=== PATIENT | female | born 1980 | race Caucasian/White ===

== ENCOUNTER 2018-12-16 06:15 | Inpatient (IN) | payer BC ==
[~2018-12-16] VITALS: Ht 165.1 cm; Wt 112.1 kg
[~2018-12-16 06:15] MED LIST: ALBUTEROL SULFAT3 M3 IH; ALBUTEROL2.5 MG/3 M IH; BUDESONIDE0.5 MG/2 M IH; CODEINE-GUAIFE120 ML PO; IBU800 M2 PO; IPRATROPIUM BROM3 M1 IH; MACROBID 100 M100 MG PO; PANTOPRAZOLE SO40 MG PO; PREDNISONE20 MG PO; PROAIR HFA0.09 MG/AC IH; PROZAC20 M1 PO; RANITIDINE HCL150 M1 PO; TESSALON PERLE100 M1 PO; ZITHROMAX Z PA250 MG PO
[2018-12-16] MEDS ORDERED: SYMBICORT1 AE3 IH (06:23)
[2018-12-16] MEDS ORDERED: XANAX0.5 M1 PO (06:24)
[2018-12-16 07:02] LABS: EOS # 0.3 (0.04-0.40); EOS % 2.3 % (1.0-5.0); HEMATOCRIT 46.2 % (37.0-47.0); HEMOGLOBIN 15.8 g/dL (12.5-16.0); LYMPH# 1.8 (1.50-4.00); MEAN CELL VOLUME 94 fl (78-100); MEAN CORPUSCULAR HEMOGLOBIN 32 pg (27-31); MEAN CORPUSCULAR HGB CONC 34 g/dL (33-37); MEAN PLATELET VOLUME 10.1 fl (7.4-10.4); MONO # 1.3 (0.20-0.80); PLATELET COUNT 400 K/mm3 (130-400); RED BLOOD COUNT 4.93 M/mm3 (4.10-5.30); RED CELL DISTRIBUTION WIDTH 13.6 % (11.5-14.5); WHITE BLOOD COUNT 14.6 K/mm3 (4.8-10.8)
[2018-12-16 07:03] LABS: NEU # 11.1 (1.40-6.50)
[2018-12-16 07:24] LABS: ALBUMIN 4.5 g/dL (3.5-5.0); CALCIUM 9.5 mg/dL (8.4-10.2); POTASSIUM 4.9 mmol/L (3.6-5.0); TOTAL BILIRUBIN 0.6 mg/dL (0.2-1.3); TOTAL PROTEIN 7.6 g/dL (6.3-8.2)
[2018-12-16 10:18] VITALS: BP 127/84
[2018-12-16 11:05] VITALS: BP 127/85
[2018-12-16 15:06] VITALS: BP 122/72
[2018-12-16 18:43] VITALS: BP 132/70
[2018-12-16 23:53] VITALS: BP 130/75
[2018-12-17 03:47] VITALS: BP 137/81
[2018-12-17 06:15] VITALS: BP 146/84
[2018-12-17 08:20] LABS: HEMATOCRIT 41.8 % (37.0-47.0); HEMOGLOBIN 14.3 g/dL (12.5-16.0); MEAN CELL VOLUME 95 fl (78-100); MEAN CORPUSCULAR HEMOGLOBIN 33 pg (27-31); MEAN CORPUSCULAR HGB CONC 34 g/dL (33-37); MEAN PLATELET VOLUME 9.4 fl (7.4-10.4); PLATELET COUNT 383 K/mm3 (130-400); RED BLOOD COUNT 4.39 M/mm3 (4.10-5.30)
[2018-12-17 08:23] LABS: WHITE BLOOD COUNT 21.4 K/mm3 (4.8-10.8)
[2018-12-17 08:32] LABS: BAND 1 % (0-10); LYMPHOCYTE 3 % (20-51); MONOCYTE 1 % (3-10); NEUTROPHILS 95 % (42-75)
[2018-12-17 08:33] LABS: CALCIUM 9.2 mg/dL (8.4-10.2)
[2018-12-17 11:00] VITALS: BP 126/78
[2018-12-17 14:34] VITALS: BP 131/73
[2018-12-17 18:28] VITALS: BP 138/83
[2018-12-17 23:09] VITALS: BP 130/80
[2018-12-18 02:53] VITALS: BP 119/76
[2018-12-18 06:23] VITALS: BP 127/76
[2018-12-18 10:38] LABS: HEMATOCRIT 42.1 % (37.0-47.0); HEMOGLOBIN 14.1 g/dL (12.5-16.0); MEAN CELL VOLUME 97 fl (78-100); MEAN CORPUSCULAR HEMOGLOBIN 32 pg (27-31); MEAN CORPUSCULAR HGB CONC 34 g/dL (33-37); MEAN PLATELET VOLUME 9.3 fl (7.4-10.4); PLATELET COUNT 419 K/mm3 (130-400); RED BLOOD COUNT 4.36 M/mm3 (4.10-5.30); RED CELL DISTRIBUTION WIDTH 13.2 % (11.5-14.5); WHITE BLOOD COUNT 19.3 K/mm3 (4.8-10.8)
[2018-12-18 10:50] LABS: ALBUMIN 4.2 g/dL (3.5-5.0); CALCIUM 9.1 mg/dL (8.4-10.2); POTASSIUM 3.9 mmol/L (3.6-5.0); TOTAL BILIRUBIN 0.4 mg/dL (0.2-1.3); TOTAL PROTEIN 7.2 g/dL (6.3-8.2)
[2018-12-18 11:01] LABS: BAND 1 % (0-10); LYMPHOCYTE 3 % (20-51); MONOCYTE 3 % (3-10); NEUTROPHILS 93 % (42-75)
[2018-12-18 11:21] VITALS: BP 129/80
[2018-12-18 14:28] VITALS: BP 146/79
[2018-12-18 14:44] VITALS: BP 146/79
== END 2018-12-18 16:13 | disposition short-term general hospital (02) | DRG 203 ==
LOC: ED 06:15 → MED/SURG 08:37
PROVIDERS: Nurse Practitioner; Physician Assistant; ADMIT Nurse Practitioner Primary Care
DX: J45.901 Unspecified asthma with (acute) exacerbation (principal); R06.03 Acute respiratory distress; F41.9 Anxiety disorder, unspecified; K21.9 Gastro-esophageal reflux disease without esophagitis; F17.210 Nicotine dependence, cigarettes, uncomplicated
CPT/HCPCS: J2060; J2930; J3475; J7030; Q9967

== ENCOUNTER 2019-07-31 23:13 | Emergency (ER) | payer SELFPAY ==
[~2019-07-31] VITALS: Ht 167.6 cm; Wt 113.6 kg
[~2019-07-31 23:13] MED LIST changes: +SYMBICORT1 AE3 IH; +XANAX0.5 M1 PO
[2019-08-01 00:36] LABS: EOS # 0.4 (0.04-0.40); EOS % 3.4 % (1.0-5.0); HEMATOCRIT 40.8 % (37.0-47.0); HEMOGLOBIN 14.2 g/dL (12.5-16.0); LYMPH# 1.9 (1.50-4.00); MEAN CELL VOLUME 93 fl (78-100); MEAN CORPUSCULAR HEMOGLOBIN 32 pg (27-31); MEAN CORPUSCULAR HGB CONC 35 g/dL (33-37); MEAN PLATELET VOLUME 9.6 fl (7.4-10.4); MONO # 0.8 (0.20-0.80); NEU # 7.2 (1.40-6.50); PLATELET COUNT 318 K/mm3 (130-400); RED BLOOD COUNT 4.38 M/mm3 (4.10-5.30); WHITE BLOOD COUNT 10.2 K/mm3 (4.8-10.8)
[2019-08-01] MEDS ORDERED: PREDNISONE20 M1 PO (01:10)
[2019-08-01] MEDS ORDERED: ALBUTEROL2.5 MG/3 M IH (01:10)
[2019-08-01 01:25] VITALS: BP 133/87
== END 2019-08-01 01:25 | disposition home or self-care (01) ==
LOC: ED 23:13
PROVIDERS: Family Medicine
DX: J45.909 Unspecified asthma, uncomplicated (principal); K21.9 Gastro-esophageal reflux disease without esophagitis; F41.0 Panic disorder [episodic paroxysmal anxiety]; Z79.51 Long term (current) use of inhaled steroids
CPT/HCPCS: J7512

== ENCOUNTER 2019-08-27 00:09 | Emergency (ER) | payer SELFPAY ==
[~2019-08-27] VITALS: Ht 167.6 cm; Wt 111.4 kg
[~2019-08-27 00:09] MED LIST changes: +PREDNISONE20 M1 PO
[2019-08-27 00:49] LABS: EOS # 0.4 (0.04-0.40); EOS % 3.6 % (1.0-5.0); HEMATOCRIT 41.8 % (37.0-47.0); HEMOGLOBIN 14.4 g/dL (12.5-16.0); LYMPH# 1.9 (1.50-4.00); MEAN CELL VOLUME 94 fl (78-100); MEAN CORPUSCULAR HEMOGLOBIN 32 pg (27-31); MEAN CORPUSCULAR HGB CONC 34 g/dL (33-37); MEAN PLATELET VOLUME 9.7 fl (7.4-10.4); MONO # 0.8 (0.20-0.80); NEU # 7.6 (1.40-6.50); PLATELET COUNT 371 K/mm3 (130-400); RED BLOOD COUNT 4.46 M/mm3 (4.10-5.30); RED CELL DISTRIBUTION WIDTH 13.4 % (11.5-14.5); WHITE BLOOD COUNT 10.7 K/mm3 (4.8-10.8)
[2019-08-27 01:14] LABS: POTASSIUM 3.9 mmol/L (3.5-5.1)
[2019-08-27 01:16] LABS: TOTAL PROTEIN 7.1 g/dL (6.4-8.3)
[2019-08-27 01:18] LABS: TOTAL BILIRUBIN 0.4 mg/dL (0.2-1.2)
[2019-08-27] MEDS ORDERED: PREDNISONE20 MG PO (01:55)
[2019-08-27 02:10] VITALS: BP 129/60
== END 2019-08-27 02:10 | disposition home or self-care (01) ==
LOC: ED 00:09
PROVIDERS: Physician Assistant
DX: J45.901 Unspecified asthma with (acute) exacerbation (principal); K21.9 Gastro-esophageal reflux disease without esophagitis; F41.9 Anxiety disorder, unspecified; F17.210 Nicotine dependence, cigarettes, uncomplicated; Z79.51 Long term (current) use of inhaled steroids
CPT/HCPCS: J2060; J2930

== ENCOUNTER 2019-09-24 18:04 | Emergency (ER) | payer SELFPAY ==
[~2019-09-24] VITALS: Ht 167.6 cm; Wt 113.6 kg
[2019-09-24 19:17] LABS: EOS # 0.3 (0.04-0.40); EOS % 3.3 % (1.0-5.0); HEMATOCRIT 41.3 % (37.0-47.0); HEMOGLOBIN 14.2 g/dL (12.5-16.0); LYMPH# 1.8 (1.50-4.00); MEAN CELL VOLUME 94 fl (78-100); MEAN CORPUSCULAR HEMOGLOBIN 32 pg (27-31); MEAN CORPUSCULAR HGB CONC 34 g/dL (33-37); MEAN PLATELET VOLUME 9.3 fl (7.4-10.4); MONO # 0.7 (0.20-0.80); PLATELET COUNT 346 K/mm3 (130-400); WHITE BLOOD COUNT 9.8 K/mm3 (4.8-10.8)
[2019-09-24 19:25] LABS: POTASSIUM 3.8 mmol/L (3.5-5.1)
[2019-09-24 19:26] LABS: CALCIUM 9.5 mg/dL (8.3-10.5)
[2019-09-24] MEDS ORDERED: AUGMENTIN 875-1 EAC1 PO (20:40)
[2019-09-24] MEDS ORDERED: PREDNISONE10 MG PO (20:40)
[2019-09-24] MEDS ORDERED: XOPENEX 3 ML3 M3 IH (21:16)
[2019-09-24 21:30] VITALS: BP 113/71
== END 2019-09-24 21:30 | disposition home or self-care (01) ==
LOC: ED 18:04
PROVIDERS: Nurse Practitioner Family
DX: J45.901 Unspecified asthma with (acute) exacerbation (principal); J18.0 Bronchopneumonia, unspecified organism; K21.9 Gastro-esophageal reflux disease without esophagitis; F41.9 Anxiety disorder, unspecified; F17.210 Nicotine dependence, cigarettes, uncomplicated
CPT/HCPCS: J2930

== ENCOUNTER 2019-11-20 18:32 | Emergency (ER) | payer SELFPAY ==
[~2019-11-20] VITALS: Ht 167.6 cm; Wt 68.2 kg
[~2019-11-20 18:32] MED LIST changes: +AUGMENTIN 875-1 EAC1 PO; +PREDNISONE10 MG PO; +XOPENEX 3 ML3 M3 IH
[2019-11-20] MEDS ORDERED: PROZAC20 M1 PO (20:02)
[2019-11-20] MEDS ORDERED: NATURAL IRON65 MG PO (20:02)
[2019-11-20 20:32] LABS: HEMATOCRIT 43.5 % (37.0-47.0); HEMOGLOBIN 14.7 g/dL (12.5-16.0); MEAN CELL VOLUME 95 fl (78-100); MEAN CORPUSCULAR HEMOGLOBIN 32 pg (27-31); MEAN CORPUSCULAR HGB CONC 34 g/dL (33-37); MEAN PLATELET VOLUME 9.4 fl (7.4-10.4); PLATELET COUNT 357 K/mm3 (130-400); RED CELL DISTRIBUTION WIDTH 13.1 % (11.5-14.5); WHITE BLOOD COUNT 13.1 K/mm3 (4.8-10.8)
[2019-11-20 20:39] LABS: ALBUMIN 4.2 g/dL (3.5-5.0)
[2019-11-20 20:40] LABS: CALCIUM 9.1 mg/dL (8.3-10.5)
[2019-11-20 20:42] LABS: TOTAL PROTEIN 7.2 g/dL (6.4-8.3)
[2019-11-20 20:43] LABS: TOTAL BILIRUBIN 0.4 mg/dL (0.2-1.2)
[2019-11-20 20:57] LABS: NEUTROPHILS 75 % (42-75)
[2019-11-20 20:58] LABS: LYMPHOCYTE 18 % (20-51); MONOCYTE 6 % (3-10)
[2019-11-20] MEDS ORDERED: ZITHROMAX 250M250 MG PO (21:47)
[2019-11-20] MEDS ORDERED: PREDNISONE20 M1 PO (21:47)
[2019-11-20 22:12] VITALS: BP 128/81
[2019-11-21] MEDS ORDERED: IPRATROPIUM BROM3 M1 IH (02:48)
[2019-11-21] MEDS ORDERED: ATROVENT I0.2 MG/1 M IH (03:28)
== END 2019-11-20 22:12 | disposition home or self-care (01) ==
LOC: ED 18:32
PROVIDERS: Family Medicine
DX: J45.909 Unspecified asthma, uncomplicated (principal); F41.9 Anxiety disorder, unspecified; F17.210 Nicotine dependence, cigarettes, uncomplicated

== ENCOUNTER 2019-11-21 02:22 | Emergency (ER) | payer SELFPAY ==
[~2019-11-21] VITALS: Ht 167.6 cm; Wt 113.6 kg
[~2019-11-21 02:22] MED LIST changes: +NATURAL IRON65 MG PO; +ZITHROMAX 250M250 MG PO
[2019-11-21] MEDS ORDERED: IPRATROPIUM BROM3 M1 IH (02:48)
[2019-11-21] MEDS ORDERED: ATROVENT I0.2 MG/1 M IH (03:28)
[2019-11-21 03:37] VITALS: BP 115/78
== END 2019-11-21 03:37 | disposition home or self-care (01) ==
LOC: ED 02:22
DX: J45.909 Unspecified asthma, uncomplicated (principal); F17.210 Nicotine dependence, cigarettes, uncomplicated; Z79.52 Long term (current) use of systemic steroids

== ENCOUNTER 2019-12-05 13:51 | Emergency (ER) | payer BC ==
[~2019-12-05 13:51] MED LIST changes: +ATROVENT I0.2 MG/1 M IH
[2019-12-05] MEDS ORDERED: SYMBICORT1 AE3 IH (14:04)
[2019-12-05] MEDS ORDERED: PREDNISONE20 M1 PO (15:14)
[2019-12-05 15:41] VITALS: BP 141/74
== END 2019-12-05 15:48 | disposition home or self-care (01) ==
LOC: ED 13:51
DX: J45.909 Unspecified asthma, uncomplicated (principal); F41.0 Panic disorder [episodic paroxysmal anxiety]; Z79.1 Long term (current) use of non-steroidal anti-inflammatories (NSAID)

== ENCOUNTER 2020-01-18 19:54 | Emergency (ER) | payer BC ==
[~2020-01-18] VITALS: Ht 167.6 cm; Wt 113.6 kg
[2020-01-18 20:48] LABS: EOS % 6.5 % (1.0-5.0); HEMATOCRIT 44.4 % (37.0-47.0); HEMOGLOBIN 14.8 g/dL (12.5-16.0); LYMPH# 2.9 (1.50-4.00); MEAN CELL VOLUME 96 fl (78-100); MEAN CORPUSCULAR HEMOGLOBIN 32 pg (27-31); MEAN CORPUSCULAR HGB CONC 33 g/dL (33-37); MEAN PLATELET VOLUME 9.6 fl (7.4-10.4); MONO # 0.8 (0.20-0.80); NEU # 6.7 (1.40-6.50); PLATELET COUNT 377 K/mm3 (130-400); RED BLOOD COUNT 4.64 M/mm3 (4.10-5.30); RED CELL DISTRIBUTION WIDTH 13.3 % (11.5-14.5); WHITE BLOOD COUNT 11.2 K/mm3 (4.8-10.8)
[2020-01-18 20:50] LABS: EOS # 0.7 (0.04-0.40)
[2020-01-18 20:54] LABS: ALBUMIN 4.2 g/dL (3.5-5.0); POTASSIUM 4.1 mmol/L (3.5-5.1)
[2020-01-18 20:57] LABS: TOTAL PROTEIN 7.3 g/dL (6.4-8.3)
[2020-01-18 20:59] LABS: TOTAL BILIRUBIN 0.3 mg/dL (0.2-1.2)
[2020-01-18] MEDS ORDERED: SYMBICORT1 AE3 IH (21:18)
[2020-01-18] MEDS ORDERED: HYDROCODONE AN473 M1 PO (21:30)
[2020-01-18 21:42] VITALS: BP 132/76
[2020-01-18] MEDS ORDERED: PREDNISONE20 M1 PO (21:42)
== END 2020-01-18 21:42 | disposition home or self-care (01) ==
LOC: ED 19:54
PROVIDERS: Nurse Practitioner Primary Care
DX: J44.1 Chronic obstructive pulmonary disease with (acute) exacerbation (principal); J45.901 Unspecified asthma with (acute) exacerbation; F41.9 Anxiety disorder, unspecified; F32.9 Major depressive disorder, single episode, unspecified; F17.210 Nicotine dependence, cigarettes, uncomplicated
CPT/HCPCS: J2930

== ENCOUNTER → 2020-01-25 | Outpatient (CLI) | payer BC ==
[2020-01-18 21:42] VITALS: BP 132/76
[~2020-01-25] MED LIST changes: +HYDROCODONE AN473 M1 PO
[2020-01-25 10:58] LABS: EOS % 0.2 % (1.0-5.0); HEMATOCRIT 42.5 % (37.0-47.0); HEMOGLOBIN 14.1 g/dL (12.5-16.0); LYMPH# 3.1 (1.50-4.00); MEAN CELL VOLUME 97 fl (78-100); MEAN CORPUSCULAR HEMOGLOBIN 32 pg (27-31); MEAN CORPUSCULAR HGB CONC 33 g/dL (33-37); MEAN PLATELET VOLUME 9.2 fl (7.4-10.4); MONO # 1.1 (0.20-0.80); NEU # 7.8 (1.40-6.50); PLATELET COUNT 367 K/mm3 (130-400); RED CELL DISTRIBUTION WIDTH 13.1 % (11.5-14.5)
[2020-01-25 11:04] LABS: POTASSIUM 4.1 mmol/L (3.5-5.1)
[2020-01-25 11:05] LABS: ALBUMIN 4.1 g/dL (3.5-5.0)
[2020-01-25 11:06] LABS: CALCIUM 9.4 mg/dL (8.3-10.5)
[2020-01-25 11:07] LABS: TOTAL PROTEIN 6.9 g/dL (6.4-8.3)
[2020-01-25 11:09] LABS: TOTAL BILIRUBIN 0.3 mg/dL (0.2-1.2)
[2020-01-25 12:02] LABS: ERYTHROCYTE SEDIMENTATION RATE 21 mm/hr (0-20)
[2020-01-26 11:58] LABS: IGM,SERUM 164 mg/dL (33-293); IMMUNOGLOBULIN A 198 mg/dL (65-421); IMMUNOGLOBULIN G 711 mg/dL (552-1631)
== END ==
LOC: LAB 10:37
PROVIDERS: Internal Medicine
DX: Z00.00 Encounter for general adult medical examination without abnormal findings (principal); J45.909 Unspecified asthma, uncomplicated; K90.89 Other intestinal malabsorption

== ENCOUNTER → 2020-02-18 | Day surgery (SDC) | payer BC | LOC: MSO 08:28 | DX: K21.9 Gastro-esophageal reflux disease without esophagitis (principal); J45.909 Unspecified asthma, uncomplicated; G47.33 Obstructive sleep apnea (adult) (pediatric); Z87.891 Personal history of nicotine dependence | CPT/HCPCS: 00731; J2704; J7120 ==

== ENCOUNTER → 2020-05-23 | Outpatient (CLI) | payer BC | LOC: LAB 16:21 | DX: K90.9 Intestinal malabsorption, unspecified (principal); E55.9 Vitamin D deficiency, unspecified ==

== ENCOUNTER 2020-07-02 14:24 | Emergency (ER) | payer BC ==
[~2020-07-02] VITALS: Ht 167.6 cm; Wt 116.2 kg
[2020-07-02] MEDS ORDERED: ZYRTEC ALLERGY10 MG PO (14:37)
[2020-07-02] MEDS ORDERED: ACIDOPHILUS1 EAC1 PO (14:38)
[2020-07-02] MEDS ORDERED: LANSOPRAZOLE30 MG PO (14:38)
[2020-07-02] MEDS ORDERED: VITAMIN D250 MCG PO (14:40)
[2020-07-02] MEDS ORDERED: CALCITRIOL PO (14:41)
[2020-07-02] MEDS ORDERED: LEVALBUTER1.25 MG/1 IH (14:57)
[2020-07-02 16:02] LABS: HEMATOCRIT 41.7 % (37.0-47.0); HEMOGLOBIN 14.2 g/dL (12.5-16.0); MEAN CELL VOLUME 93 fl (78-100); MEAN CORPUSCULAR HEMOGLOBIN 32 pg (27-31); MEAN CORPUSCULAR HGB CONC 34 g/dL (33-37); PLATELET COUNT 367 K/mm3 (130-400); RED BLOOD COUNT 4.48 M/mm3 (4.10-5.30); RED CELL DISTRIBUTION WIDTH 13.4 % (11.5-14.5); WHITE BLOOD COUNT 10.2 K/mm3 (4.8-10.8)
[2020-07-02 16:04] LABS: LYMPHOCYTE 14 % (20-51); MONOCYTE 6 % (3-10); NEUTROPHILS 80 % (42-75)
[2020-07-02 16:13] LABS: ALBUMIN 4.2 g/dL (3.5-5.0)
[2020-07-02 16:14] LABS: SODIUM 140 mmol/L (136-145)
[2020-07-02 16:15] LABS: CALCIUM 8.9 mg/dL (8.3-10.5)
[2020-07-02 16:16] LABS: GLUCOSE 110 mg/dL (65-105); TOTAL PROTEIN 7.5 g/dL (6.4-8.3)
[2020-07-02 16:17] LABS: CARBON DIOXIDE 22 mmol/L (22-29)
[2020-07-02 16:18] LABS: TOTAL BILIRUBIN 0.3 mg/dL (0.2-1.2)
[2020-07-02 16:21] LABS: AST-SGOT 16 U/L (5-34)
[2020-07-02 16:22] LABS: ALT/SGPT 20 U/L (0-55)
[2020-07-02 16:29] LABS: D-DIMER 0.35 mg/L FEU (0.15-0.50); TROPONIN-I < 0.03 ng/mL (<0.030)
[2020-07-02] MEDS ORDERED: PREDNISONE20 MG PO (16:32)
[2020-07-02 16:55] VITALS: BP 128/62
== END 2020-07-02 16:55 | disposition home or self-care (01) ==
LOC: ED 14:24
PROVIDERS: Family Medicine
DX: J45.901 Unspecified asthma with (acute) exacerbation (principal); F41.9 Anxiety disorder, unspecified; K21.9 Gastro-esophageal reflux disease without esophagitis; F17.210 Nicotine dependence, cigarettes, uncomplicated; Z79.52 Long term (current) use of systemic steroids; Z79.51 Long term (current) use of inhaled steroids
CPT/HCPCS: J2930

== ENCOUNTER → 2020-07-11 | Outpatient (CLI) | payer BC ==
[2020-07-02 16:55] VITALS: BP 128/62
[~2020-07-11] MED LIST changes: +ACIDOPHILUS1 EAC1 PO; +CALCITRIOL PO; +LANSOPRAZOLE30 MG PO; +LEVALBUTER1.25 MG/1 IH; +VITAMIN D250 MCG PO; +ZYRTEC ALLERGY10 MG PO
[2020-07-11 15:04] LABS: EOS # 0.5 (0.04-0.40); EOS % 6.5 % (1.0-5.0); HEMATOCRIT 44.8 % (37.0-47.0); LYMPH# 2.3 (1.50-4.00); MEAN CELL VOLUME 93 fl (78-100); MEAN CORPUSCULAR HEMOGLOBIN 31 pg (27-31); MEAN CORPUSCULAR HGB CONC 34 g/dL (33-37); MONO # 0.8 (0.20-0.80); NEU # 3.7 (1.40-6.50); PLATELET COUNT 381 K/mm3 (130-400); RED BLOOD COUNT 4.81 M/mm3 (4.10-5.30); RED CELL DISTRIBUTION WIDTH 13.4 % (11.5-14.5); WHITE BLOOD COUNT 7.3 K/mm3 (4.8-10.8)
[2020-07-11 15:22] LABS: ALBUMIN 4.3 g/dL (3.5-5.0); POTASSIUM 4.4 mmol/L (3.5-5.1)
[2020-07-11 15:23] LABS: CALCIUM 9.4 mg/dL (8.3-10.5)
[2020-07-11 15:24] LABS: TOTAL PROTEIN 7.9 g/dL (6.4-8.3)
[2020-07-11 15:26] LABS: TOTAL BILIRUBIN 0.6 mg/dL (0.2-1.2)
== END ==
LOC: LAB 14:52
PROVIDERS: Internal Medicine
DX: Z00.00 Encounter for general adult medical examination without abnormal findings (principal); K90.9 Intestinal malabsorption, unspecified; E55.9 Vitamin D deficiency, unspecified

== ENCOUNTER 2020-09-22 01:21 | Emergency (ER) | payer SELFPAY ==
[~2020-09-22] VITALS: Ht 167.6 cm; Wt 118.2 kg
[2020-09-22 02:03] LABS: EOS # 0.4 (0.04-0.40); EOS % 3.1 % (1.0-5.0); HEMATOCRIT 42.7 % (37.0-47.0); HEMOGLOBIN 14.3 g/dL (12.5-16.0); LYMPH# 1.8 (1.50-4.00); MEAN CELL VOLUME 96 fl (78-100); MEAN CORPUSCULAR HEMOGLOBIN 32 pg (27-31); MEAN CORPUSCULAR HGB CONC 34 g/dL (33-37); MEAN PLATELET VOLUME 9.2 fl (7.4-10.4); MONO # 0.5 (0.20-0.80); NEU # 8.6 (1.40-6.50); PLATELET COUNT 342 K/mm3 (130-400); RED BLOOD COUNT 4.45 M/mm3 (4.10-5.30); RED CELL DISTRIBUTION WIDTH 14.2 % (11.5-14.5); WHITE BLOOD COUNT 11.3 K/mm3 (4.8-10.8)
[2020-09-22 02:16] LABS: ALBUMIN 4.3 g/dL (3.5-5.0); POTASSIUM 4.3 mmol/L (3.5-5.1)
[2020-09-22 02:17] LABS: CALCIUM 8.9 mg/dL (8.3-10.5)
[2020-09-22 02:18] LABS: TOTAL PROTEIN 7.2 g/dL (6.4-8.3)
[2020-09-22 02:20] LABS: TOTAL BILIRUBIN 0.3 mg/dL (0.2-1.2)
[2020-09-22] MEDS ORDERED: ZITHROMAX Z PA250 MG PO (02:51)
[2020-09-22] MEDS ORDERED: PREDNISONE20 MG PO (02:51)
[2020-09-22 03:02] VITALS: BP 127/72
== END 2020-09-22 03:02 | disposition home or self-care (01) ==
LOC: ED 01:21
PROVIDERS: Physician Assistant
DX: J45.901 Unspecified asthma with (acute) exacerbation (principal); F41.9 Anxiety disorder, unspecified; F17.210 Nicotine dependence, cigarettes, uncomplicated
CPT/HCPCS: J2930

== ENCOUNTER → 2020-10-20 | Outpatient (CLI) | payer SELFPAY ==
[2020-09-22 03:02] VITALS: BP 127/72
== END ==
LOC: LAB 09:34
DX: R30.0 Dysuria (principal)

== ENCOUNTER → 2021-01-10 | Outpatient (CLI) | payer SELFPAY | LOC: RAD 12:16 | DX: M54.5 Low back pain (principal); K90.9 Intestinal malabsorption, unspecified ==

== ENCOUNTER → 2021-10-14 | Outpatient (CLI) | payer SELFPAY | LOC: LAB 10:44 | DX: J02.9 Acute pharyngitis, unspecified (principal) ==

== ENCOUNTER 2021-11-11 08:35 | Emergency (ER) | payer SELFPAY ==
[2021-11-11 09:24] LABS: BASO # 0.02 K/mm3 (0.02-0.10); EOS # 0.24 K/mm3 (0.04-0.40); EOS % 2.1 % (1.0-5.0); HEMATOCRIT 42.9 % (37.0-47.0); HEMOGLOBIN 14.4 g/dL (12.5-16.0); LYMPH# 1.88 K/mm3 (1.50-4.00); MEAN CELL VOLUME 98 fl (78-100); MEAN CORPUSCULAR HEMOGLOBIN 33 pg (27-31); MEAN CORPUSCULAR HGB CONC 34 g/dL (33-37); MEAN PLATELET VOLUME 8.9 fl (7.4-10.4); MONO # 0.82 K/mm3 (0.20-0.80); NEU # 8.64 K/mm3 (1.40-6.50); PLATELET COUNT 330 K/mm3 (130-400); RED BLOOD COUNT 4.37 M/mm3 (4.10-5.30); RED CELL DISTRIBUTION WIDTH 13.7 % (11.5-14.5); WHITE BLOOD COUNT 11.6 K/mm3 (4.8-10.8)
[2021-11-11 09:33] LABS: POTASSIUM 4.1 mmol/L (3.5-5.1)
[2021-11-11 09:34] LABS: CALCIUM 9.1 mg/dL (8.3-10.5)
[2021-11-11] MEDS ORDERED: AZITHROMYCIN 250MGPK PO (10:46)
[2021-11-11] MEDS ORDERED: IPRATROPIUM BROM3 M1 IH (10:46)
[2021-11-11] MEDS ORDERED: PREDNISONE20 M1 PO (10:46)
[2021-11-11 11:26] VITALS: BP 131/85
== END 2021-11-11 11:11 | disposition home or self-care (01) ==
LOC: ED 08:35
PROVIDERS: Family Medicine
DX: J45.909 Unspecified asthma, uncomplicated (principal); Z20.822 Contact with and (suspected) exposure to COVID-19; Z79.899 Other long term (current) drug therapy
CPT/HCPCS: J2930

== ENCOUNTER 2022-03-18 23:03 | Emergency (ER) | payer SELFPAY ==
[~2022-03-18] VITALS: Ht 170.2 cm; Wt 116.2 kg
[~2022-03-18 23:03] MED LIST changes: +AZITHROMYCIN 250MGPK PO
[2022-03-19 00:19] LABS: BASO # 0.03 K/mm3 (0.02-0.10); EOS # 0.43 K/mm3 (0.04-0.40); EOS % 4.3 % (1.0-5.0); HEMATOCRIT 44.3 % (37.0-47.0); HEMOGLOBIN 14.7 g/dL (12.5-16.0); LYMPH# 2.65 K/mm3 (1.50-4.00); MEAN CELL VOLUME 99 fl (78-100); MEAN CORPUSCULAR HEMOGLOBIN 33 pg (27-31); MEAN CORPUSCULAR HGB CONC 33 g/dL (33-37); MONO # 0.71 K/mm3 (0.20-0.80); NEU # 6.25 K/mm3 (1.40-6.50); PLATELET COUNT 351 K/mm3 (130-400); RED BLOOD COUNT 4.49 M/mm3 (4.10-5.30); WHITE BLOOD COUNT 10.1 K/mm3 (4.8-10.8)
[2022-03-19 00:34] LABS: POTASSIUM 4.2 mmol/L (3.5-5.1)
[2022-03-19 00:36] LABS: CALCIUM 9.8 mg/dL (8.3-10.5)
[2022-03-19] MEDS ORDERED: PULMICORT0.5 MG/2 M IH (01:09)
[2022-03-19] MEDS ORDERED: PREDNISONE20 M1 PO (01:09)
[2022-03-19] MEDS ORDERED: IPRATROPIUM BROM3 M1 IH (01:09)
[2022-03-19] MEDS ORDERED: FORMOTEROL20 MCG/2 M IH (01:09)
[2022-03-19 01:31] VITALS: BP 127/78
== END 2022-03-19 01:31 | disposition home or self-care (01) ==
LOC: ED 23:03
PROVIDERS: Family Medicine
DX: J45.901 Unspecified asthma with (acute) exacerbation (principal); F17.210 Nicotine dependence, cigarettes, uncomplicated
CPT/HCPCS: J7512

== ENCOUNTER → 2022-03-30 | Outpatient (CLI) | payer SELFPAY ==
[~2022-03-30] MED LIST changes: +FORMOTEROL20 MCG/2 M IH; +PULMICORT0.5 MG/2 M IH
[2022-03-30 18:31] LABS: URINE APPEARANCE HAZY; URINE BILIRUBIN NEGATIVE (NEGATIVE); URINE COLOR YELLOW; URINE GLUCOSE NEGATIVE (NEGATIVE); URINE KETONE NEGATIVE (NEGATIVE); URINE PROTEIN(semi-quant) 2+ (NEGATIVE)
[2022-03-30 18:32] LABS: URINE BLOOD 250 ery/uL (NEGATIVE); URINE LEUKOCYTE ESTERASE 2+ (NEGATIVE); URINE MUCUS PRESENT (NOT PRESENT); URINE NITRATE POSITIVE (NEGATIVE); URINE UROBILINOGEN NORMAL (NORMAL); URINE WBC 31-50 /hpf (0-3)
== END ==
LOC: LAB 16:49
PROVIDERS: Internal Medicine
DX: N39.0 Urinary tract infection, site not specified (principal)